=== PATIENT | female | born 1955 | race Caucasian/White ===

== ENCOUNTER → 2017-07-29 | Outpatient (CLI) | payer BC | LOC: GMAH 10:48 | PROVIDERS: ATTEND Family Medicine | DX: M15.0 Primary generalized (osteo)arthritis (principal) ==

== ENCOUNTER → 2018-05-19 | Outpatient (CLI) | payer BC, OTHER ==
--- NOTE | 2018-05-20 09:55 | MRI ---
EXAM DESCRIPTION: Lumbar Spine w/o Contrast CLINICAL HISTORY: 62 years Female, LOW BACK PAIN COMPARISON: None available. TECHNIQUE: Multiplanar multiecho imaging of the lumbar spine was performed without intravenous contrast administration. FINDINGS: Straightening of the normal lordotic curvature of the lumbar spine is noted. The vertebral body heights are well-maintained with no acute compression deformity. Multilevel intervertebral disc space narrowing is noted. The conus medullaris terminates at T12-L1 intervertebral disc space. The visualized spinal cord demonstrates no signal abnormality. L1-L2: Bilateral facet arthropathy with no central canal stenosis. The thecal sac measures 14 mm in anteroposterior dimension. L2-L3: Bilateral ligamentum flavum hypertrophy and facet arthropathy with no canal stenosis. The thecal sac measures 13 mm in anteroposterior dimension. Minimal bilateral neural foraminal narrowing is noted. L3-L4: Mild disc bulge, ligamentum flavum hypertrophy and facet arthropathy with resultant moderate central canal stenosis, mild right and moderate left neural foraminal narrowing. The thecal sac measures 8.5 mm in anteroposterior dimension. L4-L5: Diffuse disc bulge with a superimposed central disc protrusion, ligamentum flavum hypertrophy and facet arthropathy resulting in severe canal stenosis. The thecal sac measures 6 mm in anteroposterior dimension. There is moderate to severe bilateral neural foraminal narrowing as well. L5-S1: Mild disc bulge and facet arthropathy with no central canal stenosis. Mild to moderate bilateral neural foraminal narrowing is noted. The thecal sac measures 10 mm in anteroposterior dimension. The visualized prevertebral and paravertebral soft tissues appear unremarkable. IMPRESSION: Multilevel degenerative disc disease, ligamentum flavum hypertrophy and facet arthropathy throughout the lumbar spine, with changes worse at L4-L5 level as detailed above. Electronically signed by: Ethan Pedersen MD 05/20/2018 9:52 AM CDT
== END ==
LOC: MRI 11:01
PROVIDERS: ATTEND Family Medicine
DX: M51.36 Other intervertebral disc degeneration, lumbar region (principal)

== ENCOUNTER → 2019-06-10 | Outpatient (CLI) | payer BC | LOC: GMA MATASK 11:24 | PROVIDERS: ATTEND Family Medicine | DX: D50.9 Iron deficiency anemia, unspecified (principal); E78.2 Mixed hyperlipidemia ==